=== PATIENT | female | born 1960 | race Caucasian/White ===

== ENCOUNTER 2017-04-06 15:40 | Emergency (ER) | payer BC ==
--- NOTE | 2017-04-06 16:29 | RAD ---
THREE VIEW RIGHT HAND 04/06/17 INDICATION: Posttraumatic pain and swelling of the right hand. FINDINGS: No evidence of fracture or dislocation. Small areas of heterotopic density are present, chronic appe aring. IMPRESSION: No acute fracture of the right hand. POS: [facility]
[2017-04-06 17:18] LABS: #Basophils 0.1 thou/uL (0.0-0.2); #Eosinphils 0.3 thou/uL (0.0-0.7); #Lymphocytes 1.6 thou/uL (1.20-3.40); #Monocytes 0.4 thou/uL (0.11-0.59); #Neutrophils 6.3 thou/uL (1.40-6.50); %Basophils 1.3 % (0.0-1.0); %Eosinophils 3.7 % (0.0-10.0); %Lymphocytes 18.6 % (21.0-51.0); %Monocytes 4.1 % (0.0-10.0); %Neutrophils 72.4 % (42.0-75.0); ALT (SGPT) 20 U/L (8-55); AST (SGOT) 20 U/L (5-34); Albumin 3.6 g/dL (3.5-5.0); Alkaline Phosphatase 49 U/L (40-150); Anion Gap 13 mmol/L (10-20); BUN (Urea Nitrogen) 12 mg/dL (9.8-20.1); Bilirubin, Total 0.4 mg/dL (0.2-1.2); Calc. Creatinine Clearance 0 mL/min (70-130); Calcium 8.5 mg/dL (7.8-10.44); Carbon Dioxide 27 mmol/L (22-29); Chloride 107 mmol/L (98-107); Estimated GFR-MDRD 90; Globulin 2.8 g/dL (2.4-3.5); Glucose 103 mg/dL (70-105); Hemoglobin 13.1 g/dL (12.0-16.0); Mean Corpuscular Hemoglobin 32.1 pg (27.0-31.0); Mean Corpuscular Volume 100.5 fl (81.0-99.0); Platelet Count 240 thou/uL (130-400); Potassium 3.1 mmol/L (3.5-5.1); Protein, Total 6.4 g/dL (6.0-8.3); RBC Distribution Width 12.7 % (11.5-14.5); Red Blood Cell (RBC) Count 4.08 mill/uL (4.20-5.40); Sodium 144 mmol/L (136-145); Uric Acid 9.5 mg/dL (2.6-6.0); White Blood Cell (WBC) Count 8.7 thou/uL (4.8-10.8)
[2017-04-06] MEDS ORDERED: predniSONE 20 MG TAB ONE (17:28)
[2017-04-10 08:18] LABS: Antinuclear AB Negative (Negative)
== END 2017-04-06 17:43 | disposition home or self-care (01) ==
LOC: MADERS 15:40
DX: M10.9 Gout, unspecified (principal); J44.9 Chronic obstructive pulmonary disease, unspecified; F32.9 Major depressive disorder, single episode, unspecified; E03.9 Hypothyroidism, unspecified; E78.5 Hyperlipidemia, unspecified; Z87.891 Personal history of nicotine dependence; Z79.82 Long term (current) use of aspirin; Z79.899 Other long term (current) drug therapy
CPT/HCPCS: 80053; 84550; 85025; 86038; 86140; 86430; J7506

== ENCOUNTER 2017-06-27 12:04 | Emergency (ER) | payer BC ==
[2017-06-27] MEDS ORDERED: predniSONE 20 MG TAB ONE (12:29)
--- NOTE | 2017-06-27 12:44 | RAD ---
TWO VIEWS CHEST: History: Dyspnea. FINDINGS: Mild cardiomegaly is noted. No evidence of effusions, pneumonia, or pneumothorax seen. Comparison is made from previous exam of 10-06-12. IMPRESSION: Mild cardiomegaly. Otherwise unremarkable PA and lateral chest. POS: [facility]
[2017-06-27 13:30] LABS: Bilirubin Negative (Negative); Blood, Urine Moderate (Negative); Clarity Clear (Clear); Glucose, Urine (Dipstick) Negative (Negative); Leukocyte Trace (Negative); Nitrite Negative (Negative); Protein, Urine (Dipstick) Negative (Neg-Trace); Urobilinogen 0.2 mg/dL (0.2-1.0)
[2017-06-27 13:37] LABS: Bacteria/HPF Rare-Few HPF (None Seen); Squamous Epithelial 0-3 HPF (0-3)
== END 2017-06-27 13:50 | disposition home or self-care (01) ==
LOC: MADERS 12:04
DX: J44.1 Chronic obstructive pulmonary disease with (acute) exacerbation (principal); N39.0 Urinary tract infection, site not specified; E03.9 Hypothyroidism, unspecified; E78.5 Hyperlipidemia, unspecified; F32.9 Major depressive disorder, single episode, unspecified; Z87.891 Personal history of nicotine dependence; Z79.82 Long term (current) use of aspirin; Z79.899 Other long term (current) drug therapy
CPT/HCPCS: 71020; 81003; 81015; 87086; 93005; 94640; J7506; J7620

== ENCOUNTER 2017-09-20 16:31 | Emergency (ER) | payer BC ==
[~2017-09-20 16:31] MED LIST: Albuterol Sulfate 2.5 mg/3 ml Neb ONE
[2017-09-20] MEDS ORDERED: Benzonatate 100 MG CAP ONE (17:25)
[2017-09-20] MEDS ORDERED: predniSONE 20 MG TAB ONE (17:25)
[2017-09-20] MEDS ORDERED: Oseltamivir 75 MG CAP ONE (18:40)
[2017-09-20] MEDS ORDERED: Albuterol Sulfate 1.25 MG/3 ML NEB ONE (18:46)
--- NOTE | 2017-09-20 19:09 | RAD ---
CHEST TWO VIEWS: 09/20/17 COMPARISON: 06/27/17 study. HISTORY: Cough and congestion. Heart size is slightly enlarged. The lungs are clear of any infiltrates. There is no interval change since the prior exam. IMPRESSION: No active intrathoracic disease. Stable chest. POS: [facility]
== END 2017-09-20 18:39 | disposition home or self-care (01) ==
LOC: MADERS 16:31
DX: J10.1 Influenza due to other identified influenza virus with other respiratory manifestations (principal); R09.02 Hypoxemia; J44.9 Chronic obstructive pulmonary disease, unspecified; E03.9 Hypothyroidism, unspecified; E78.5 Hyperlipidemia, unspecified; F17.210 Nicotine dependence, cigarettes, uncomplicated; Z79.82 Long term (current) use of aspirin; Z79.899 Other long term (current) drug therapy
CPT/HCPCS: 71020; 94760; J7506; J7611; J7620

== ENCOUNTER 2018-05-22 17:08 | Emergency (ER) | payer BC | END 2018-05-22 17:30 | disposition home or self-care (01) | LOC: MADERS 17:08 | DX: M77.9 Enthesopathy, unspecified (principal); Z79.82 Long term (current) use of aspirin; Z79.899 Other long term (current) drug therapy | CPT/HCPCS: 99282 ==

== ENCOUNTER 2018-11-16 07:07 | Emergency (ER) | payer BC ==
[2018-11-16] MEDS ORDERED: methylPREDNISolone Sod Succ/PF 125 MG/2 ML VIAL ONE (07:41)
[2018-11-16] MEDS ORDERED: Acetaminophen 500 MG TAB ONE (07:41)
[2018-11-16 08:05] LABS: Band 4 % (5-11); Hemoglobin 14.9 g/dL (12.0-16.0); Lymphocytes 8 % (21-51); Mean Corpuscular HGB CONC 31.8 g/dL (32.0-36.0); Mean Corpuscular Hemoglobin 32.1 pg (27.0-31.0); Mean Platelet Volume 9.3 fL (7.4-10.4); Monocytes 6 % (0-10); Neutrophil 82 % (42-75); Platelet Count 183 thou/uL (130-400); Platelet Morphology Comment Appears Adequate; Red Blood Cell (RBC) Count 4.65 mill/uL (4.20-5.40); White Blood Cell (WBC) Count 8.1 thou/uL (4.8-10.8)
[2018-11-16 08:06] LABS: ALT (SGPT) 33 U/L (8-55); AST (SGOT) 41 U/L (5-34); Albumin 4.2 g/dL (3.5-5.0); Alkaline Phosphatase 63 U/L (40-150); Anion Gap 13 mmol/L (10-20); BUN (Urea Nitrogen) 9 mg/dL (9.8-20.1); Bilirubin, Total 0.5 mg/dL (0.2-1.2); Calc. Creatinine Clearance 0 mL/min (70-130); Carbon Dioxide 32 mmol/L (22-29); Chloride 98 mmol/L (98-107); Estimated GFR-MDRD 87; Glucose 104 mg/dL (70-105); Potassium 3.9 mmol/L (3.5-5.1); Protein, Total 7.2 g/dL (6.0-8.3); Sodium 139 mmol/L (136-145)
[2018-11-16] MEDS ORDERED: cefTRIAXone\\ROCEPHIN 2 GM VIAL ONE (08:28)
[2018-11-16] MEDS ORDERED: Azithromycin 500 MG VIAL ONE ×2 (08:29→08:55)
[2018-11-16] MEDS ORDERED: Sodium Chloride 0.9% 200 ML ONE (08:29)
--- NOTE | 2018-11-16 09:28 | RAD ---
CHEST 2 VIEWS: COMPARISON: 09/20/2017. HISTORY: Cough. Dyspnea. FINDINGS: Normal cardiac silhouette. The pulmonary vessels are within normal limits. There are diffuse inters titial opacities throughout the lung parenchyma. There is a more focal opacity in the left mid lung measuring 2.4 cm. Focal infiltrate is suspected. No pneumothorax or osseous abnormalities. IMPRESSION: Mild pulmonary vascular prominence. Focal left mid lung opacity. Correlate for infiltrate. Continu ed surveillance to ensure resolution is recommended. POS: [facility]
== END 2018-11-16 09:07 | disposition short-term general hospital (02) ==
LOC: MADERS 07:07
DX: A41.9 Sepsis, unspecified organism (principal); R65.20 Severe sepsis without septic shock; J96.01 Acute respiratory failure with hypoxia; J18.9 Pneumonia, unspecified organism; J44.1 Chronic obstructive pulmonary disease with (acute) exacerbation; Z79.899 Other long term (current) drug therapy; Z79.82 Long term (current) use of aspirin; Z79.51 Long term (current) use of inhaled steroids
CPT/HCPCS: 36415; 71046; 80053; 83605; 84484; 85025; 85379; 87040; 87804; 93005; 94760; 96365; 96375; J0456; J0696; J2930; J7050; J7620

== ENCOUNTER 2019-03-18 02:57 | Emergency (ER) | payer BC ==
[2019-03-18] MEDS ORDERED: Ketorolac Tromethamine 30 MG/ML VIAL ONE (03:23)
[2019-03-18] MEDS ORDERED: Clindamycin/D5W 900 mg/50 ml Premix Bag ONE (03:36)
[2019-03-18] MEDS ORDERED: Dexamethasone 10 MG/ML VIAL ONE (03:36)
[2019-03-18 03:40] LABS: #Basophils 0.2 thou/uL (0.0-0.2); #Eosinphils 0.3 thou/uL (0.0-0.7); #Monocytes 0.8 thou/uL (0.11-0.59); #Neutrophils 7.5 thou/uL (1.40-6.50); %Basophils 1.5 % (0.0-1.0); %Eosinophils 2.8 % (0.0-10.0); %Lymphocytes 18.7 % (21.0-51.0); %Monocytes 7.2 % (0.0-10.0); %Neutrophils 69.8 % (42.0-75.0); Hemoglobin 13.9 g/dL (12.0-16.0); Mean Corpuscular Hemoglobin 32.7 pg (27.0-31.0); Platelet Count 229 thou/uL (130-400); RBC Distribution Width 12.2 % (11.5-14.5); Red Blood Cell (RBC) Count 4.26 mill/uL (4.20-5.40); White Blood Cell (WBC) Count 10.7 thou/uL (4.8-10.8)
[2019-03-18 03:54] LABS: Anion Gap 15 mmol/L (10-20); BUN (Urea Nitrogen) 13 mg/dL (9.8-20.1); Calc. Creatinine Clearance 0 mL/min (70-130); Calcium 9.2 mg/dL (7.8-10.44); Carbon Dioxide 29 mmol/L (22-29); Chloride 103 mmol/L (98-107); Estimated GFR-MDRD 85; Glucose 96 mg/dL (70-105); Potassium 3.5 mmol/L (3.5-5.1); Sodium 143 mmol/L (136-145)
== END 2019-03-18 05:10 | disposition home or self-care (01) ==
LOC: MADERS 02:57
DX: K04.7 Periapical abscess without sinus (principal); L03.211 Cellulitis of face; K02.9 Dental caries, unspecified; J44.9 Chronic obstructive pulmonary disease, unspecified; F31.9 Bipolar disorder, unspecified; Z87.891 Personal history of nicotine dependence; Z79.899 Other long term (current) drug therapy
CPT/HCPCS: 80048; 85025; 96365; 96375; J1100; J1885; J3490

== ENCOUNTER 2019-07-11 18:08 | Emergency (ER) | payer BC | END 2019-07-11 18:37 | disposition home or self-care (01) | LOC: MADERS 18:08 | DX: M62.838 Other muscle spasm (principal); J44.9 Chronic obstructive pulmonary disease, unspecified; F31.9 Bipolar disorder, unspecified; Z87.891 Personal history of nicotine dependence; Z79.899 Other long term (current) drug therapy; Z79.51 Long term (current) use of inhaled steroids | CPT/HCPCS: 99283 ==

== ENCOUNTER 2022-05-21 01:19 | Emergency (ER) | payer OTHER ==
[2022-05-21 02:45] LABS: #Basophils 0.1 thou/uL (0.0-0.2); #Eosinphils 0.3 thou/uL (0.0-0.7); #Lymphocytes 0.8 thou/uL (1.20-3.40); #Monocytes 0.4 thou/uL (0.11-0.59); #Neutrophils 6.1 thou/uL (1.40-6.50); %Basophils 1.3 % (0.0-1.0); %Eosinophils 3.5 % (0.0-10.0); %Lymphocytes 10.8 % (21.0-51.0); %Monocytes 5.6 % (0.0-10.0); %Neutrophils 78.8 % (42.0-75.0); Hemoglobin 15.1 g/dL (12.0-16.0); Mean Corpuscular HGB CONC 31.2 g/dL (32.0-36.0); Mean Corpuscular Hemoglobin 30.7 pg (27.0-31.0); Mean Corpuscular Volume 98.6 fL (78.0-98.0); Mean Platelet Volume 11.1 fL (7.4-10.4); Platelet Count 210 thou/uL (130-400); RBC Distribution Width 12.7 % (11.5-14.5); Red Blood Cell (RBC) Count 4.92 mill/uL (4.20-5.40); White Blood Cell (WBC) Count 7.7 thou/uL (4.8-10.8)
[2022-05-21 03:05] LABS: ALT (SGPT) 24 U/L (8-55); AST (SGOT) 53 U/L (5-34); Albumin 3.9 g/dL (3.4-4.8); Alkaline Phosphatase 63 U/L (40-110); Anion Gap 19 mmol/L (10-20); BUN (Urea Nitrogen) 10 mg/dL (9.8-20.1); Calc. Creatinine Clearance 0 mL/min (70-130); Calcium 9.7 mg/dL (7.8-10.44); Estimated GFR 85; Globulin 3.8 g/dL (2.4-3.5); Glucose 166 mg/dL (80-115); Magnesium 1.6 mg/dL (1.6-2.6); Protein, Total 7.7 g/dL (5.8-8.1)
[2022-05-21] MEDS ORDERED: Albuterol Sulfate 2.5 mg/3 ml Neb ONE ×2 (03:07→04:04)
[2022-05-21] MEDS ORDERED: Amoxicillin/Potassium Clav 875 MG TAB ONE (03:07)
[2022-05-21] MEDS ORDERED: methylPREDNISolone Sod Succ/PF 125 MG/2 ML VIAL ONE (03:07)
[2022-05-21 03:08] LABS: Carbon Dioxide 46 mmol/L (23-31); Chloride 74 mmol/L (98-107); Potassium 2.8 mmol/L (3.5-5.1); Sodium 136 mmol/L (136-145)
[2022-05-21 03:29] LABS: SARS-CoV-2 NAA Rapid Test Not Detected (NotDetected)
[2022-05-21 03:51] LABS: Base Excess-Venous 15.5 mmol/L (-2.0 to 3.0); Bicarbonate (HCO3v) 46.9 mmol/L (22.0-28.0); CO2 Tension (PvCO2) 82.2 mmHg (42.0-51.0); Calcium, Ionized 1.03 mmol/L (1.15-1.33); Chloride 72 mmol/L (98-107); Hemoglobin - Calc 18.4 g/dL (12.0-16.0); Potassium 2.2 mmol/L (3.5-5.1); Sodium 130 mmol/L (138-145); T. Carbon Dioxide 49.4 mmol/L (22.0-28.0); vO2 Saturation-calc 70.9 % (60.0-85.0)
[2022-05-21] MEDS ORDERED: Magnesium 2 GM/50 ML BAG (IN WATER) ONE (04:04)
[2022-05-21] MEDS ORDERED: Potassium Chloride 20 MEQ TAB ONE (04:04)
[2022-05-21] MEDS ORDERED: Sodium Chloride 0.9% 1,000 ML ONE ×2 (04:04→09:21)
[2022-05-21 08:57] LABS: Anion Gap 18 mmol/L (10-20); BUN (Urea Nitrogen) 10 mg/dL (9.8-20.1); Calc. Creatinine Clearance 0 mL/min (70-130); Calcium 9.1 mg/dL (7.8-10.44); Estimated GFR 87; Glucose 201 mg/dL (80-115); Magnesium 2.5 mg/dL (1.6-2.6)
[2022-05-21 09:00] LABS: Carbon Dioxide 42 mmol/L (23-31)
[2022-05-21 09:01] LABS: Chloride 79 mmol/L (98-107); Potassium 3.3 mmol/L (3.5-5.1); Sodium 136 mmol/L (136-145)
[2022-05-21 09:20] LABS: Bilirubin Negative (Negative); Blood, Urine Trace (Negative); Clarity Clear (Clear); Glucose, Urine (Dipstick) Negative (Negative); Ketone, Urine Negative (Negative); Leukocyte Negative (Negative); Nitrite Negative (Negative); Protein, Urine (Dipstick) Negative (Neg-Trace); Specific Gravity, Urine 1.015 (1.005-1.030); Urobilinogen 0.2 mg/dL (Less than 2); pH, Urine 6.5 (5.0-9.0)
[2022-05-21] MEDS ORDERED: Multivit, Adult Inj 10 ML VIAL ONE (09:21)
[2022-05-21] MEDS ORDERED: Thiamine HCl 200 MG/2 ML VIAL ONE (09:21)
[2022-05-21 09:28] LABS: Bacteria/HPF Rare-Few HPF (None Seen); WBC/HPF 0-3 HPF (0-3)
[2022-05-21 09:53] LABS: Acetaminophen Less than 10.0 mcg/mL (10.0-30.0); Alcohol Less than 10 mg/dL (Less than 10); Salicylate Less than 8.0 mg/dL (15.0-30.0)
== END 2022-05-21 10:43 | disposition short-term general hospital (02) ==
LOC: MADERS 01:19
DX: S09.90XA Unspecified injury of head, initial encounter (principal); J44.1 Chronic obstructive pulmonary disease with (acute) exacerbation; E87.8 Other disorders of electrolyte and fluid balance, not elsewhere classified; E87.6 Hypokalemia; E83.42 Hypomagnesemia; R41.82 Altered mental status, unspecified; R53.1 Weakness; R94.31 Abnormal electrocardiogram [ECG] [EKG]; R29.700 NIHSS score 0; I10 Essential (primary) hypertension; E03.9 Hypothyroidism, unspecified; W06.XXXA Fall from bed, initial encounter; Y92.002 Bathroom of unspecified non-institutional (private) residence as the place of occurrence of the external cause; Z20.822 Contact with and (suspected) exposure to COVID-19; Z87.891 Personal history of nicotine dependence
CPT/HCPCS: 36415; 70450; 71045; 72125; 80053; 80307; 81003; 81015; 82330; 82803; 83735; 84439; 84443; 84484; 85025; 93005; 94760; 96365; 96366; 96367; 96368; 96372; 96375; J2930; J3411; J3475; J3480; J7050; J7611; J7620

== ENCOUNTER 2022-05-25 18:14 | Inpatient (IN) | payer OTHER ==
[2022-05-25] MEDS ORDERED: Albuterol 200 PUFF (6.7GM INHALER) INH PRN (21:44)
[2022-05-26] MEDS: Levothyroxine Sodium 112 MCG TAB PO SCH (05:53)
[2022-05-26] MEDS ORDERED: Mometasone/Formoterol 200/5 60 PUFF INH SCH (07:00)
[2022-05-26 07:21] LABS: #Basophils 0.1 thou/uL (0.0-0.2); #Eosinphils 0.2 thou/uL (0.0-0.7); #Lymphocytes 2.4 thou/uL (1.20-3.40); #Monocytes 0.8 thou/uL (0.11-0.59); #Neutrophils 6.5 thou/uL (1.40-6.50); %Basophils 1.3 % (0.0-1.0); %Eosinophils 1.5 % (0.0-10.0); %Lymphocytes 24.4 % (21.0-51.0); %Monocytes 7.6 % (0.0-10.0); %Neutrophils 65.3 % (42.0-75.0); Hemoglobin 12.3 g/dL (12.0-16.0); MDiff Complete? YES; Macrocytosis SLIGHT = 6-15 cells (100X) (0-5/hpf); Mean Corpuscular HGB CONC 29.2 g/dL (32.0-36.0); Mean Corpuscular Hemoglobin 30.9 pg (27.0-31.0); Mean Corpuscular Volume 105.7 fL (78.0-98.0); Platelet Count 208 thou/uL (130-400); RBC Distribution Width 13.8 % (11.5-14.5); Red Blood Cell (RBC) Count 3.99 mill/uL (4.20-5.40); White Blood Cell (WBC) Count 9.9 thou/uL (4.8-10.8)
[2022-05-26 07:47] LABS: Anion Gap 16 mmol/L (10-20); BUN (Urea Nitrogen) 24 mg/dL (9.8-20.1); Calc. Creatinine Clearance 127 mL/min (70-130); Calcium 9.1 mg/dL (7.8-10.44); Estimated GFR 97; Glucose 84 mg/dL (80-115)
[2022-05-26 07:54] LABS: Chloride 88 mmol/L (98-107); Potassium 3.7 mmol/L (3.5-5.1); Sodium 144 mmol/L (136-145)
[2022-05-26] MEDS: predniSONE 20 MG TAB PO SCH (08:01)
[2022-05-26] MEDS: Escitalopram Oxalate 10 mg Tablet PO SCH (08:01)
[2022-05-26] MEDS: Aspirin Chewable 81 MG TAB PO SCH (08:01)
[2022-05-26] MEDS: Multivit, Therapeutic 1 TAB PO SCH (08:02)
[2022-05-26] MEDS: Hydrochlorothiazide 25 MG TAB PO SCH ×2 (08:02→12:10)
[2022-05-26] MEDS: Divalproex Sodium 250 MG (DR) TAB PO SCH (08:02)
[2022-05-26] MEDS: ALPRAZolam 0.25 MG TAB PO SCH ×2 (08:03→21:12)
[2022-05-26] MEDS: Furosemide 20 MG TAB PO SCH ×2 (08:03→12:10)
[2022-05-26] MEDS: Enoxaparin Sodium 40 MG/0.4 ML SYRINGE SC SCH (08:04)
[2022-05-26] MEDS: Lisinopril 20 MG TAB PO SCH ×2 (08:04→12:10)
[2022-05-26] MEDS: Mometasone/Formoterol 200/5 60 PUFF INH SCH ×2 (08:05→21:01)
[2022-05-26 08:49] LABS: Carbon Dioxide 43 mmol/L (23-31)
[2022-05-26] MEDS: Albuterol Sulfate 2.5 mg/3 ml Neb NEB PRN (20:58)
[2022-05-27] MEDS: Albuterol Sulfate 2.5 mg/3 ml Neb NEB PRN (03:28)
[2022-05-27] MEDS: Levothyroxine Sodium 112 MCG TAB PO SCH (05:54)
[2022-05-27] MEDS: Divalproex Sodium 250 MG (DR) TAB PO SCH (08:23)
[2022-05-27] MEDS: ALPRAZolam 0.25 MG TAB PO SCH ×2 (08:23→20:11)
[2022-05-27] MEDS: Aspirin Chewable 81 MG TAB PO SCH (08:23)
[2022-05-27] MEDS: predniSONE 20 MG TAB PO SCH (08:23)
[2022-05-27] MEDS: Lisinopril 20 MG TAB PO SCH (08:24)
[2022-05-27] MEDS: Multivit, Therapeutic 1 TAB PO SCH (08:24)
[2022-05-27] MEDS: Hydrochlorothiazide 25 MG TAB PO SCH (08:24)
[2022-05-27] MEDS: Escitalopram Oxalate 10 mg Tablet PO SCH (08:25)
[2022-05-27] MEDS: Enoxaparin Sodium 40 MG/0.4 ML SYRINGE SC SCH (08:25)
[2022-05-27] MEDS: Mometasone/Formoterol 200/5 60 PUFF INH SCH ×2 (08:25→20:11)
[2022-05-27] MEDS: Furosemide 20 MG TAB PO SCH (08:25)
[2022-05-28] MEDS: Levothyroxine Sodium 112 MCG TAB PO SCH (05:27)
[2022-05-28] MEDS: predniSONE 20 MG TAB PO SCH (08:27)
[2022-05-28] MEDS: Multivit, Therapeutic 1 TAB PO SCH (08:28)
[2022-05-28] MEDS: ALPRAZolam 0.25 MG TAB PO SCH ×2 (08:28→20:07)
[2022-05-28] MEDS: Lisinopril 20 MG TAB PO SCH (08:28)
[2022-05-28] MEDS: Hydrochlorothiazide 25 MG TAB PO SCH (08:28)
[2022-05-28] MEDS: Furosemide 20 MG TAB PO SCH (08:28)
[2022-05-28] MEDS: Escitalopram Oxalate 10 mg Tablet PO SCH (08:29)
[2022-05-28] MEDS: Enoxaparin Sodium 40 MG/0.4 ML SYRINGE SC SCH (08:29)
[2022-05-28] MEDS: Divalproex Sodium 250 MG (DR) TAB PO SCH (08:29)
[2022-05-28] MEDS: Aspirin Chewable 81 MG TAB PO SCH (08:29)
[2022-05-28] MEDS: Mometasone/Formoterol 200/5 60 PUFF INH SCH ×2 (08:30→20:04)
[2022-05-28] MEDS: Albuterol Sulfate 2.5 mg/3 ml Neb NEB PRN ×2 (08:39→22:28)
[2022-05-29] MEDS: Levothyroxine Sodium 112 MCG TAB PO SCH (06:11)
[2022-05-29] MEDS: Hydrochlorothiazide 25 MG TAB PO SCH (07:59)
[2022-05-29] MEDS: Furosemide 20 MG TAB PO SCH (07:59)
[2022-05-29] MEDS: Multivit, Therapeutic 1 TAB PO SCH (07:59)
[2022-05-29] MEDS: Aspirin Chewable 81 MG TAB PO SCH (07:59)
[2022-05-29] MEDS: predniSONE 20 MG TAB PO SCH (07:59)
[2022-05-29] MEDS: Lisinopril 20 MG TAB PO SCH (07:59)
[2022-05-29] MEDS: ALPRAZolam 0.25 MG TAB PO SCH ×2 (08:00→20:29)
[2022-05-29] MEDS: Escitalopram Oxalate 10 mg Tablet PO SCH (08:00)
[2022-05-29] MEDS: Divalproex Sodium 250 MG (DR) TAB PO SCH (08:00)
[2022-05-29] MEDS: Mometasone/Formoterol 200/5 60 PUFF INH SCH (08:01)
[2022-05-29] MEDS: Enoxaparin Sodium 40 MG/0.4 ML SYRINGE SC SCH (08:01)
[2022-05-30 05:45] LABS: Anion Gap 18 mmol/L (10-20); BUN (Urea Nitrogen) 15 mg/dL (9.8-20.1); Calc. Creatinine Clearance 131 mL/min (70-130); Calcium 9.1 mg/dL (7.8-10.44); Estimated GFR 98; Glucose 165 mg/dL (80-115)
[2022-05-30] MEDS: Levothyroxine Sodium 112 MCG TAB PO SCH (05:47)
[2022-05-30 05:50] LABS: Carbon Dioxide 45 mmol/L (23-31); Chloride 85 mmol/L (98-107); Potassium 3.3 mmol/L (3.5-5.1); Sodium 145 mmol/L (136-145)
[2022-05-30] MEDS: Thiamine 100 MG TAB PO SCH (08:06)
[2022-05-30] MEDS: predniSONE 20 MG TAB PO SCH (08:06)
[2022-05-30] MEDS: Furosemide 20 MG TAB PO SCH (08:06)
[2022-05-30] MEDS: Lisinopril 20 MG TAB PO SCH (08:06)
[2022-05-30] MEDS: Aspirin Chewable 81 MG TAB PO SCH (08:06)
[2022-05-30] MEDS: Hydrochlorothiazide 25 MG TAB PO SCH (08:06)
[2022-05-30] MEDS: Escitalopram Oxalate 10 mg Tablet PO SCH (08:06)
[2022-05-30] MEDS: Multivit, Therapeutic 1 TAB PO SCH (08:07)
[2022-05-30] MEDS: ALPRAZolam 0.25 MG TAB PO SCH (08:07)
[2022-05-30] MEDS: Divalproex Sodium 250 MG (DR) TAB PO SCH (08:07)
[2022-05-30] MEDS: Folic Acid 1 MG TAB PO SCH (08:07)
[2022-05-30] MEDS: Enoxaparin Sodium 40 MG/0.4 ML SYRINGE SC SCH (08:07)
[2022-05-30] MEDS: ALPRAZolam 0.5 MG TAB PO SCH (21:20)
[2022-05-31] MEDS: Levothyroxine Sodium 112 MCG TAB PO SCH (06:00)
[2022-05-31] MEDS: Albuterol Sulfate 2.5 mg/3 ml Neb NEB PRN ×2 (08:00→15:46)
[2022-05-31] MEDS: Enoxaparin Sodium 40 MG/0.4 ML SYRINGE SC SCH (08:20)
[2022-05-31] MEDS: Hydrochlorothiazide 25 MG TAB PO SCH (08:21)
[2022-05-31] MEDS: Lisinopril 20 MG TAB PO SCH (08:21)
[2022-05-31] MEDS: Aspirin Chewable 81 MG TAB PO SCH (08:21)
[2022-05-31] MEDS: ALPRAZolam 0.5 MG TAB PO SCH ×2 (08:21→20:15)
[2022-05-31] MEDS: Folic Acid 1 MG TAB PO SCH (08:21)
[2022-05-31] MEDS: Multivit, Therapeutic 1 TAB PO SCH (08:21)
[2022-05-31] MEDS: Escitalopram Oxalate 10 mg Tablet PO SCH (08:21)
[2022-05-31] MEDS: Divalproex Sodium 250 MG (DR) TAB PO SCH (08:21)
[2022-05-31] MEDS: predniSONE 20 MG TAB PO SCH (08:21)
[2022-05-31] MEDS: Thiamine 100 MG TAB PO SCH (08:21)
[2022-05-31] MEDS: Furosemide 20 MG TAB PO SCH (08:21)
[2022-06-01] MEDS: Levothyroxine Sodium 112 MCG TAB PO SCH (05:36)
[2022-06-01] MEDS: ALPRAZolam 0.5 MG TAB PO SCH ×2 (08:33→20:11)
[2022-06-01] MEDS: Hydrochlorothiazide 25 MG TAB PO SCH (08:34)
[2022-06-01] MEDS: Multivit, Therapeutic 1 TAB PO SCH (08:34)
[2022-06-01] MEDS: Furosemide 20 MG TAB PO SCH (08:34)
[2022-06-01] MEDS: Escitalopram Oxalate 10 mg Tablet PO SCH (08:34)
[2022-06-01] MEDS: Folic Acid 1 MG TAB PO SCH (08:34)
[2022-06-01] MEDS: predniSONE 20 MG TAB PO SCH (08:34)
[2022-06-01] MEDS: Lisinopril 20 MG TAB PO SCH (08:34)
[2022-06-01] MEDS: Divalproex Sodium 250 MG (DR) TAB PO SCH (08:34)
[2022-06-01] MEDS: Thiamine 100 MG TAB PO SCH (08:34)
[2022-06-01] MEDS: Aspirin Chewable 81 MG TAB PO SCH (08:34)
[2022-06-01] MEDS: Enoxaparin Sodium 40 MG/0.4 ML SYRINGE SC SCH (08:38)
[2022-06-02] MEDS: Levothyroxine Sodium 112 MCG TAB PO SCH (06:20)
[2022-06-02] MEDS: Thiamine 100 MG TAB PO SCH (07:59)
[2022-06-02] MEDS: Aspirin Chewable 81 MG TAB PO SCH (07:59)
[2022-06-02] MEDS: Furosemide 20 MG TAB PO SCH (07:59)
[2022-06-02] MEDS: Divalproex Sodium 250 MG (DR) TAB PO SCH (07:59)
[2022-06-02] MEDS: predniSONE 20 MG TAB PO SCH (07:59)
[2022-06-02] MEDS: ALPRAZolam 0.5 MG TAB PO SCH ×2 (07:59→21:02)
[2022-06-02] MEDS: Multivit, Therapeutic 1 TAB PO SCH (07:59)
[2022-06-02] MEDS: Hydrochlorothiazide 25 MG TAB PO SCH (08:00)
[2022-06-02] MEDS: Escitalopram Oxalate 10 mg Tablet PO SCH (08:00)
[2022-06-02] MEDS: Lisinopril 20 MG TAB PO SCH (08:00)
[2022-06-02] MEDS: Enoxaparin Sodium 40 MG/0.4 ML SYRINGE SC SCH (08:00)
[2022-06-02] MEDS: Folic Acid 1 MG TAB PO SCH (08:03)
[2022-06-03 05:32] LABS: Hemoglobin 12.8 g/dL (12.0-16.0); Platelet Count 220 thou/uL (130-400)
[2022-06-03] MEDS: Levothyroxine Sodium 112 MCG TAB PO SCH (05:46)
[2022-06-03] MEDS: ALPRAZolam 0.5 MG TAB PO SCH ×2 (08:17→20:35)
[2022-06-03] MEDS: Hydrochlorothiazide 25 MG TAB PO SCH (08:17)
[2022-06-03] MEDS: predniSONE 10 MG TAB PO SCH (08:18)
[2022-06-03] MEDS: Divalproex Sodium 250 MG (DR) TAB PO SCH (08:18)
[2022-06-03] MEDS: Escitalopram Oxalate 10 mg Tablet PO SCH (08:18)
[2022-06-03] MEDS: Furosemide 20 MG TAB PO SCH (08:18)
[2022-06-03] MEDS: Lisinopril 20 MG TAB PO SCH (08:18)
[2022-06-03] MEDS: Aspirin Chewable 81 MG TAB PO SCH (08:19)
[2022-06-03] MEDS: Multivit, Therapeutic 1 TAB PO SCH (08:19)
[2022-06-03] MEDS: Folic Acid 1 MG TAB PO SCH (08:19)
[2022-06-03] MEDS: Enoxaparin Sodium 40 MG/0.4 ML SYRINGE SC SCH (08:19)
[2022-06-03] MEDS: Thiamine 100 MG TAB PO SCH (08:19)
[2022-06-04] MEDS: Levothyroxine Sodium 112 MCG TAB PO SCH (05:40)
[2022-06-04] MEDS: Escitalopram Oxalate 10 mg Tablet PO SCH (08:28)
[2022-06-04] MEDS: Divalproex Sodium 250 MG (DR) TAB PO SCH (08:28)
[2022-06-04] MEDS: Hydrochlorothiazide 25 MG TAB PO SCH (08:29)
[2022-06-04] MEDS: Folic Acid 1 MG TAB PO SCH (08:29)
[2022-06-04] MEDS: Lisinopril 20 MG TAB PO SCH (08:29)
[2022-06-04] MEDS: ALPRAZolam 0.5 MG TAB PO SCH ×2 (08:29→20:26)
[2022-06-04] MEDS: Furosemide 20 MG TAB PO SCH (08:29)
[2022-06-04] MEDS: Aspirin Chewable 81 MG TAB PO SCH (08:29)
[2022-06-04] MEDS: Thiamine 100 MG TAB PO SCH (08:29)
[2022-06-04] MEDS: Multivit, Therapeutic 1 TAB PO SCH (08:29)
[2022-06-04] MEDS: predniSONE 10 MG TAB PO SCH (08:30)
[2022-06-04] MEDS: Enoxaparin Sodium 40 MG/0.4 ML SYRINGE SC SCH (08:31)
[2022-06-04] MEDS ORDERED: Ibuprofen 800 MG TAB PO PRN (19:52)
[2022-06-04] MEDS: Ibuprofen 800 MG TAB PO PRN (20:25)
[2022-06-05] MEDS: Levothyroxine Sodium 112 MCG TAB PO SCH (05:21)
[2022-06-05] MEDS: Ibuprofen 800 MG TAB PO PRN ×2 (06:27→17:53)
[2022-06-05] MEDS: Thiamine 100 MG TAB PO SCH (08:31)
[2022-06-05] MEDS: Aspirin Chewable 81 MG TAB PO SCH (08:31)
[2022-06-05] MEDS: predniSONE 5 MG TAB PO SCH (08:31)
[2022-06-05] MEDS: Furosemide 20 MG TAB PO SCH (08:32)
[2022-06-05] MEDS: Multivit, Therapeutic 1 TAB PO SCH (08:32)
[2022-06-05] MEDS: Folic Acid 1 MG TAB PO SCH (08:32)
[2022-06-05] MEDS: Divalproex Sodium 250 MG (DR) TAB PO SCH (08:32)
[2022-06-05] MEDS: Enoxaparin Sodium 40 MG/0.4 ML SYRINGE SC SCH (08:32)
[2022-06-05] MEDS: Escitalopram Oxalate 10 mg Tablet PO SCH (08:32)
[2022-06-05] MEDS: Hydrochlorothiazide 25 MG TAB PO SCH (08:32)
[2022-06-05] MEDS: Lisinopril 20 MG TAB PO SCH (08:33)
[2022-06-05] MEDS: ALPRAZolam 0.5 MG TAB PO SCH ×2 (08:36→20:33)
[2022-06-05 10:57] VITALS: BMI 37.3
[2022-06-05] MEDS: Primidone 50 MG TAB PO SCH (20:33)
[2022-06-06] MEDS: Levothyroxine Sodium 112 MCG TAB PO SCH (05:13)
[2022-06-06] MEDS: ALPRAZolam 0.5 MG TAB PO SCH ×2 (08:43→20:16)
[2022-06-06] MEDS: Thiamine 100 MG TAB PO SCH (08:43)
[2022-06-06] MEDS: Divalproex Sodium 250 MG (DR) TAB PO SCH (08:43)
[2022-06-06] MEDS: Multivit, Therapeutic 1 TAB PO SCH (08:44)
[2022-06-06] MEDS: Lisinopril 20 MG TAB PO SCH (08:44)
[2022-06-06] MEDS: Aspirin Chewable 81 MG TAB PO SCH (08:44)
[2022-06-06] MEDS: Hydrochlorothiazide 25 MG TAB PO SCH (08:44)
[2022-06-06] MEDS: Folic Acid 1 MG TAB PO SCH (08:44)
[2022-06-06] MEDS: Enoxaparin Sodium 40 MG/0.4 ML SYRINGE SC SCH (08:44)
[2022-06-06] MEDS: Furosemide 20 MG TAB PO SCH (08:44)
[2022-06-06] MEDS: predniSONE 5 MG TAB PO SCH (08:44)
[2022-06-06] MEDS: Escitalopram Oxalate 10 mg Tablet PO SCH (08:44)
[2022-06-06 13:44] LABS: #Basophils 0.1 thou/uL (0.0-0.2); #Eosinphils 0.3 thou/uL (0.0-0.7); #Lymphocytes 1.2 thou/uL (1.20-3.40); #Monocytes 0.6 thou/uL (0.11-0.59); #Neutrophils 9.2 thou/uL (1.40-6.50); %Basophils 1.3 % (0.0-1.0); %Eosinophils 2.9 % (0.0-10.0); %Lymphocytes 10.8 % (21.0-51.0); %Monocytes 5.4 % (0.0-10.0); %Neutrophils 79.6 % (42.0-75.0); Hemoglobin 11.6 g/dL (12.0-16.0); Mean Corpuscular Volume 103.2 fL (78.0-98.0); Mean Platelet Volume 11.5 fL (7.4-10.4); Platelet Count 190 thou/uL (130-400); RBC Distribution Width 13.5 % (11.5-14.5); Red Blood Cell (RBC) Count 3.76 mill/uL (4.20-5.40); White Blood Cell (WBC) Count 11.6 thou/uL (4.8-10.8)
[2022-06-06 13:56] LABS: Anion Gap 17 mmol/L (10-20); BUN (Urea Nitrogen) 13 mg/dL (9.8-20.1); Calc. Creatinine Clearance 138 mL/min (70-130); Calcium 9.5 mg/dL (7.8-10.44); Estimated GFR 99; Glucose 214 mg/dL (80-115)
[2022-06-06 14:04] LABS: Chloride 84 mmol/L (98-107); Potassium 3.1 mmol/L (3.5-5.1); Sodium 142 mmol/L (136-145)
[2022-06-06 14:14] LABS: Carbon Dioxide 43 mmol/L (23-31)
[2022-06-06] MEDS ORDERED: Potassium Chloride 20 MEQ TAB PO SCH (16:45)
[2022-06-06] MEDS: Primidone 50 MG TAB PO SCH (20:16)
[2022-06-06 20:51] LABS: Amphetamine Not Detected (NotDetected); Barbiturates Screen Not Detected (NotDetected); Benzodiazepine Screen Detected (NotDetected); Cocaine Metabolite Screen Not Detected (NotDetected); Methadone Not Detected (NotDetected); Methamphetamine Not Detected (NotDetected); Opiate Screen Not Detected (NotDetected); Oxycodone Screen Not Detected (NotDetected); Phencyclidine (PCP) Not Detected (NotDetected); THC/Cannabinoid Screen Not Detected (NotDetected); Tricyclic Screen Not Detected (NotDetected)
[2022-06-06 20:52] LABS: Medtox Control Line Valid? VALID (VALID)
[2022-06-07] MEDS: Levothyroxine Sodium 112 MCG TAB PO SCH (05:56)
[2022-06-07] MEDS: predniSONE 5 MG TAB PO SCH (07:48)
[2022-06-07] MEDS: ALPRAZolam 0.5 MG TAB PO SCH ×2 (08:02→20:34)
[2022-06-07] MEDS: Aspirin Chewable 81 MG TAB PO SCH (08:02)
[2022-06-07] MEDS: Multivit, Therapeutic 1 TAB PO SCH (08:03)
[2022-06-07] MEDS: Thiamine 100 MG TAB PO SCH (08:03)
[2022-06-07] MEDS: Divalproex Sodium 250 MG (DR) TAB PO SCH (08:03)
[2022-06-07] MEDS: Folic Acid 1 MG TAB PO SCH (08:03)
[2022-06-07] MEDS: Escitalopram Oxalate 10 mg Tablet PO SCH (08:03)
[2022-06-07] MEDS: Hydrochlorothiazide 25 MG TAB PO SCH (09:16)
[2022-06-07] MEDS: Lisinopril 20 MG TAB PO SCH (09:17)
[2022-06-07] MEDS: Furosemide 20 MG TAB PO SCH (09:17)
[2022-06-08] MEDS: Levothyroxine Sodium 112 MCG TAB PO SCH (05:32)
[2022-06-08] MEDS: Multivit, Therapeutic 1 TAB PO SCH (08:03)
[2022-06-08] MEDS: ALPRAZolam 0.5 MG TAB PO SCH ×2 (08:03→20:44)
[2022-06-08] MEDS: Thiamine 100 MG TAB PO SCH (08:03)
[2022-06-08] MEDS: Aspirin Chewable 81 MG TAB PO SCH (08:03)
[2022-06-08] MEDS: Folic Acid 1 MG TAB PO SCH (08:03)
[2022-06-08] MEDS: Divalproex Sodium 250 MG (DR) TAB PO SCH (08:03)
[2022-06-08] MEDS: Escitalopram Oxalate 10 mg Tablet PO SCH (08:03)
[2022-06-08] MEDS ORDERED: Lisinopril 5 MG TAB PO SCH ×2 (09:00)
[2022-06-08] MEDS: Ipratropium Bromide 2.5 ml Neb NEB SCH (18:14)
[2022-06-08] MEDS ORDERED: Ipratropium Bromide 2.5 ml Neb NEB SCH (19:00)
[2022-06-08] MEDS: Mometasone/Formoterol 200/5 60 PUFF INH SCH (20:46)
[2022-06-08] MEDS: Ibuprofen 800 MG TAB PO PRN (20:58)
[2022-06-09] MEDS: Ipratropium Bromide 2.5 ml Neb NEB SCH ×5 (00:35→23:59)
[2022-06-09 05:29] LABS: #Basophils 0.1 thou/uL (0.0-0.2); #Eosinphils 0.4 thou/uL (0.0-0.7); #Lymphocytes 1.4 thou/uL (1.20-3.40); #Monocytes 0.5 thou/uL (0.11-0.59); #Neutrophils 4.8 thou/uL (1.40-6.50); %Basophils 1.8 % (0.0-1.0); %Eosinophils 5.3 % (0.0-10.0); %Lymphocytes 18.9 % (21.0-51.0); %Monocytes 6.5 % (0.0-10.0); %Neutrophils 67.5 % (42.0-75.0); Hemoglobin 11.4 g/dL (12.0-16.0); Mean Corpuscular HGB CONC 29.4 g/dL (32.0-36.0); Mean Corpuscular Hemoglobin 30.6 pg (27.0-31.0); Mean Platelet Volume 10.4 fL (7.4-10.4); Platelet Count 185 thou/uL (130-400); RBC Distribution Width 13.2 % (11.5-14.5); Red Blood Cell (RBC) Count 3.72 mill/uL (4.20-5.40); White Blood Cell (WBC) Count 7.2 thou/uL (4.8-10.8)
[2022-06-09] MEDS: Levothyroxine Sodium 112 MCG TAB PO SCH (05:31)
[2022-06-09 05:45] LABS: Anion Gap 14 mmol/L (10-20); BUN (Urea Nitrogen) 12 mg/dL (9.8-20.1); Calc. Creatinine Clearance 149 mL/min (70-130); Calcium 9.5 mg/dL (7.8-10.44); Estimated GFR 100; Glucose 147 mg/dL (80-115)
[2022-06-09 05:52] LABS: Chloride 87 mmol/L (98-107); Potassium 3.4 mmol/L (3.5-5.1); Sodium 144 mmol/L (136-145)
[2022-06-09 05:58] LABS: Carbon Dioxide 46 mmol/L (23-31)
[2022-06-09] MEDS: Aspirin Chewable 81 MG TAB PO SCH (08:10)
[2022-06-09] MEDS: ALPRAZolam 0.5 MG TAB PO SCH ×2 (08:10→21:03)
[2022-06-09] MEDS: Folic Acid 1 MG TAB PO SCH (08:10)
[2022-06-09] MEDS: Multivit, Therapeutic 1 TAB PO SCH (08:10)
[2022-06-09] MEDS: Escitalopram Oxalate 10 mg Tablet PO SCH (08:10)
[2022-06-09] MEDS: Thiamine 100 MG TAB PO SCH (08:11)
[2022-06-09] MEDS: Divalproex Sodium 250 MG (DR) TAB PO SCH ×2 (08:11→21:04)
[2022-06-09] MEDS: Mometasone/Formoterol 200/5 60 PUFF INH SCH ×2 (08:11→21:05)
[2022-06-09] MEDS ORDERED: Divalproex Sodium 250 MG (DR) TAB PO SCH (10:30)
[2022-06-10] MEDS: Ipratropium Bromide 2.5 ml Neb NEB SCH ×3 (06:09→17:01)
[2022-06-10] MEDS: Levothyroxine Sodium 112 MCG TAB PO SCH (06:09)
[2022-06-10] MEDS: Aspirin Chewable 81 MG TAB PO SCH (09:05)
[2022-06-10] MEDS: ALPRAZolam 0.5 MG TAB PO SCH ×2 (09:05→21:17)
[2022-06-10] MEDS: Folic Acid 1 MG TAB PO SCH (09:06)
[2022-06-10] MEDS: Escitalopram Oxalate 10 mg Tablet PO SCH (09:06)
[2022-06-10] MEDS: Multivit, Therapeutic 1 TAB PO SCH (09:06)
[2022-06-10] MEDS: Thiamine 100 MG TAB PO SCH (09:06)
[2022-06-10] MEDS: Divalproex Sodium 250 MG (DR) TAB PO SCH ×2 (09:10→21:18)
[2022-06-10] MEDS: Mometasone/Formoterol 200/5 60 PUFF INH SCH ×2 (09:14→21:21)
[2022-06-10] MEDS: Albuterol Sulfate 2.5 mg/3 ml Neb NEB PRN (21:18)
[2022-06-11] MEDS: Ipratropium Bromide 2.5 ml Neb NEB SCH ×4 (00:06→17:12)
[2022-06-11] MEDS: Levothyroxine Sodium 112 MCG TAB PO SCH (05:50)
[2022-06-11] MEDS: ALPRAZolam 0.5 MG TAB PO SCH ×2 (08:47→20:43)
[2022-06-11] MEDS: Aspirin Chewable 81 MG TAB PO SCH (08:47)
[2022-06-11] MEDS: Multivit, Therapeutic 1 TAB PO SCH (08:48)
[2022-06-11] MEDS: Mometasone/Formoterol 200/5 60 PUFF INH SCH ×2 (08:48→20:44)
[2022-06-11] MEDS: Escitalopram Oxalate 10 mg Tablet PO SCH (08:48)
[2022-06-11] MEDS: Thiamine 100 MG TAB PO SCH (08:48)
[2022-06-11] MEDS: Divalproex Sodium 250 MG (DR) TAB PO SCH ×2 (08:48→20:44)
[2022-06-11] MEDS: Folic Acid 1 MG TAB PO SCH (08:48)
[2022-06-12] MEDS: Ipratropium Bromide 2.5 ml Neb NEB SCH ×4 (00:50→17:53)
[2022-06-12] MEDS: Levothyroxine Sodium 112 MCG TAB PO SCH (05:41)
[2022-06-12] MEDS: Escitalopram Oxalate 10 mg Tablet PO SCH (07:50)
[2022-06-12] MEDS: Mometasone/Formoterol 200/5 60 PUFF INH SCH ×2 (07:50→20:28)
[2022-06-12] MEDS: Divalproex Sodium 250 MG (DR) TAB PO SCH ×2 (07:50→20:28)
[2022-06-12] MEDS: Aspirin Chewable 81 MG TAB PO SCH (07:50)
[2022-06-12] MEDS: Folic Acid 1 MG TAB PO SCH (07:51)
[2022-06-12] MEDS: Multivit, Therapeutic 1 TAB PO SCH (07:51)
[2022-06-12] MEDS: Thiamine 100 MG TAB PO SCH (07:51)
[2022-06-12] MEDS: ALPRAZolam 0.5 MG TAB PO SCH ×2 (07:53→20:28)
[2022-06-13] MEDS: Ipratropium Bromide 2.5 ml Neb NEB SCH ×4 (00:35→18:12)
[2022-06-13] MEDS: Ibuprofen 800 MG TAB PO PRN (03:22)
[2022-06-13] MEDS: Levothyroxine Sodium 112 MCG TAB PO SCH (05:39)
[2022-06-13] MEDS: Multivit, Therapeutic 1 TAB PO SCH (07:52)
[2022-06-13] MEDS: Thiamine 100 MG TAB PO SCH (07:52)
[2022-06-13] MEDS: Divalproex Sodium 250 MG (DR) TAB PO SCH ×2 (07:52→21:21)
[2022-06-13] MEDS: Aspirin Chewable 81 MG TAB PO SCH (07:52)
[2022-06-13] MEDS: Mometasone/Formoterol 200/5 60 PUFF INH SCH ×2 (07:52→21:22)
[2022-06-13] MEDS: Folic Acid 1 MG TAB PO SCH (07:53)
[2022-06-13] MEDS: Escitalopram Oxalate 10 mg Tablet PO SCH (07:53)
[2022-06-13] MEDS: ALPRAZolam 0.5 MG TAB PO SCH ×2 (07:53→21:21)
[2022-06-14] MEDS: Ipratropium Bromide 2.5 ml Neb NEB SCH ×4 (01:16→17:22)
[2022-06-14] MEDS: Levothyroxine Sodium 112 MCG TAB PO SCH (05:37)
[2022-06-14] MEDS: Aspirin Chewable 81 MG TAB PO SCH (08:02)
[2022-06-14] MEDS: Folic Acid 1 MG TAB PO SCH (08:02)
[2022-06-14] MEDS: Divalproex Sodium 250 MG (DR) TAB PO SCH ×2 (08:02→21:55)
[2022-06-14] MEDS: Escitalopram Oxalate 10 mg Tablet PO SCH (08:02)
[2022-06-14] MEDS: Multivit, Therapeutic 1 TAB PO SCH (08:02)
[2022-06-14] MEDS: Mometasone/Formoterol 200/5 60 PUFF INH SCH ×2 (08:02→21:58)
[2022-06-14] MEDS: Thiamine 100 MG TAB PO SCH (08:02)
[2022-06-14] MEDS: ALPRAZolam 0.5 MG TAB PO SCH (08:02)
[2022-06-14] MEDS: ALPRAZolam 0.25 MG TAB PO SCH (21:55)
[2022-06-15] MEDS: Ipratropium Bromide 2.5 ml Neb NEB SCH ×5 (00:42→23:23)
[2022-06-15] MEDS: Levothyroxine Sodium 112 MCG TAB PO SCH (06:05)
[2022-06-15] MEDS: ALPRAZolam 0.25 MG TAB PO SCH ×2 (07:55→20:18)
[2022-06-15] MEDS: Aspirin Chewable 81 MG TAB PO SCH (07:55)
[2022-06-15] MEDS: Multivit, Therapeutic 1 TAB PO SCH (07:55)
[2022-06-15] MEDS: Thiamine 100 MG TAB PO SCH (07:56)
[2022-06-15] MEDS: Divalproex Sodium 250 MG (DR) TAB PO SCH ×2 (07:56→20:17)
[2022-06-15] MEDS: Escitalopram Oxalate 10 mg Tablet PO SCH (07:56)
[2022-06-15] MEDS: Folic Acid 1 MG TAB PO SCH (07:56)
[2022-06-15] MEDS: Mometasone/Formoterol 200/5 60 PUFF INH SCH ×2 (07:56→20:19)
[2022-06-16] MEDS: Ipratropium Bromide 2.5 ml Neb NEB SCH ×3 (05:25→17:58)
[2022-06-16] MEDS: Levothyroxine Sodium 112 MCG TAB PO SCH (05:27)
[2022-06-16] MEDS: Aspirin Chewable 81 MG TAB PO SCH (08:12)
[2022-06-16] MEDS: Multivit, Therapeutic 1 TAB PO SCH (08:12)
[2022-06-16] MEDS: Thiamine 100 MG TAB PO SCH (08:12)
[2022-06-16] MEDS: Escitalopram Oxalate 10 mg Tablet PO SCH (08:12)
[2022-06-16] MEDS: ALPRAZolam 0.25 MG TAB PO SCH ×2 (08:12→20:55)
[2022-06-16] MEDS: Divalproex Sodium 250 MG (DR) TAB PO SCH ×2 (08:12→20:55)
[2022-06-16] MEDS: Mometasone/Formoterol 200/5 60 PUFF INH SCH ×3 (08:12→20:55)
[2022-06-16] MEDS: Folic Acid 1 MG TAB PO SCH (08:12)
[2022-06-16] MEDS: Nystatin Cream 15 GM TUBE TOP SCH (20:54)
[2022-06-16] MEDS: Albuterol Sulfate 2.5 mg/3 ml Neb NEB PRN (21:00)
[2022-06-17] MEDS: Ipratropium Bromide 2.5 ml Neb NEB SCH ×5 (01:03→23:08)
[2022-06-17] MEDS: Levothyroxine Sodium 112 MCG TAB PO SCH ×2 (05:28→08:20)
[2022-06-17] MEDS: Divalproex Sodium 250 MG (DR) TAB PO SCH ×2 (08:19→20:33)
[2022-06-17] MEDS: Escitalopram Oxalate 10 mg Tablet PO SCH (08:19)
[2022-06-17] MEDS: Thiamine 100 MG TAB PO SCH (08:19)
[2022-06-17] MEDS: Aspirin Chewable 81 MG TAB PO SCH (08:19)
[2022-06-17] MEDS: Folic Acid 1 MG TAB PO SCH (08:20)
[2022-06-17] MEDS: ALPRAZolam 0.25 MG TAB PO SCH ×2 (08:20→20:33)
[2022-06-17] MEDS: Mometasone/Formoterol 200/5 60 PUFF INH SCH ×2 (08:20→20:49)
[2022-06-17] MEDS: Multivit, Therapeutic 1 TAB PO SCH (08:20)
[2022-06-17] MEDS: Nystatin Cream 15 GM TUBE TOP SCH ×2 (08:24→20:35)
[2022-06-18] MEDS: Ipratropium Bromide 2.5 ml Neb NEB SCH ×4 (06:06→23:11)
[2022-06-18] MEDS: Levothyroxine Sodium 112 MCG TAB PO SCH (06:06)
[2022-06-18] MEDS: ALPRAZolam 0.25 MG TAB PO SCH ×2 (08:18→20:30)
[2022-06-18] MEDS: Multivit, Therapeutic 1 TAB PO SCH (08:21)
[2022-06-18] MEDS: Thiamine 100 MG TAB PO SCH (08:21)
[2022-06-18] MEDS: Aspirin Chewable 81 MG TAB PO SCH (08:21)
[2022-06-18] MEDS: Mometasone/Formoterol 200/5 60 PUFF INH SCH ×2 (08:21→20:33)
[2022-06-18] MEDS: Divalproex Sodium 250 MG (DR) TAB PO SCH ×2 (08:21→20:30)
[2022-06-18] MEDS: Escitalopram Oxalate 10 mg Tablet PO SCH (08:21)
[2022-06-18] MEDS: Folic Acid 1 MG TAB PO SCH (08:21)
[2022-06-18] MEDS: Nystatin Cream 15 GM TUBE TOP SCH ×2 (08:22→20:32)
[2022-06-19] MEDS: Levothyroxine Sodium 112 MCG TAB PO SCH (05:52)
[2022-06-19] MEDS: Ipratropium Bromide 2.5 ml Neb NEB SCH ×3 (05:52→18:04)
[2022-06-19] MEDS: Mometasone/Formoterol 200/5 60 PUFF INH SCH ×2 (08:23→20:58)
[2022-06-19] MEDS: Escitalopram Oxalate 10 mg Tablet PO SCH (08:23)
[2022-06-19] MEDS: ALPRAZolam 0.25 MG TAB PO SCH ×2 (08:23→20:56)
[2022-06-19] MEDS: Thiamine 100 MG TAB PO SCH (08:23)
[2022-06-19] MEDS: Folic Acid 1 MG TAB PO SCH (08:23)
[2022-06-19] MEDS: Multivit, Therapeutic 1 TAB PO SCH (08:23)
[2022-06-19] MEDS: Aspirin Chewable 81 MG TAB PO SCH (08:23)
[2022-06-19] MEDS: Divalproex Sodium 250 MG (DR) TAB PO SCH ×2 (08:23→20:57)
[2022-06-19] MEDS: Nystatin Cream 15 GM TUBE TOP SCH ×2 (08:24→21:25)
[2022-06-20] MEDS: Ipratropium Bromide 2.5 ml Neb NEB SCH ×5 (01:00→23:38)
[2022-06-20] MEDS: Levothyroxine Sodium 112 MCG TAB PO SCH (05:47)
[2022-06-20] MEDS: ALPRAZolam 0.25 MG TAB PO SCH ×2 (07:59→20:32)
[2022-06-20] MEDS: Divalproex Sodium 250 MG (DR) TAB PO SCH ×2 (08:00→20:33)
[2022-06-20] MEDS: Aspirin Chewable 81 MG TAB PO SCH (08:00)
[2022-06-20] MEDS: Escitalopram Oxalate 10 mg Tablet PO SCH (08:00)
[2022-06-20] MEDS: Folic Acid 1 MG TAB PO SCH (08:00)
[2022-06-20] MEDS: Mometasone/Formoterol 200/5 60 PUFF INH SCH ×2 (08:01→20:33)
[2022-06-20] MEDS: Nystatin Cream 15 GM TUBE TOP SCH ×2 (08:01→20:34)
[2022-06-20] MEDS: Multivit, Therapeutic 1 TAB PO SCH (08:01)
[2022-06-20] MEDS: Thiamine 100 MG TAB PO SCH (08:01)
[2022-06-20] MEDS ORDERED: Divalproex Sodium 250 MG (DR) TAB PO SCH (15:00)
[2022-06-21] MEDS: Ipratropium Bromide 2.5 ml Neb NEB SCH ×4 (05:18→23:59)
[2022-06-21] MEDS: Levothyroxine Sodium 112 MCG TAB PO SCH (05:18)
[2022-06-21] MEDS: Mometasone/Formoterol 200/5 60 PUFF INH SCH ×2 (09:44→21:05)
[2022-06-21] MEDS: Aspirin Chewable 81 MG TAB PO SCH (09:45)
[2022-06-21] MEDS: Nystatin Cream 15 GM TUBE TOP SCH ×2 (09:45→21:08)
[2022-06-21] MEDS: Thiamine 100 MG TAB PO SCH (09:46)
[2022-06-21] MEDS: ALPRAZolam 0.25 MG TAB PO SCH ×2 (09:46→20:51)
[2022-06-21] MEDS: Escitalopram Oxalate 10 mg Tablet PO SCH (09:46)
[2022-06-21] MEDS: Folic Acid 1 MG TAB PO SCH (09:46)
[2022-06-21] MEDS: Divalproex Sodium 250 MG (DR) TAB PO SCH ×2 (09:46→20:59)
[2022-06-21] MEDS: Multivit, Therapeutic 1 TAB PO SCH (09:46)
[2022-06-21] MEDS: Ibuprofen 800 MG TAB PO PRN ×2 (13:49→20:55)
[2022-06-22] MEDS: Ipratropium Bromide 2.5 ml Neb NEB SCH ×4 (05:54→23:22)
[2022-06-22] MEDS: Levothyroxine Sodium 112 MCG TAB PO SCH (05:54)
[2022-06-22] MEDS: Nystatin Cream 15 GM TUBE TOP SCH ×2 (08:28→20:20)
[2022-06-22] MEDS: Multivit, Therapeutic 1 TAB PO SCH (08:29)
[2022-06-22] MEDS: Divalproex Sodium 250 MG (DR) TAB PO SCH ×2 (08:29→20:18)
[2022-06-22] MEDS: Aspirin Chewable 81 MG TAB PO SCH (08:29)
[2022-06-22] MEDS: Thiamine 100 MG TAB PO SCH (08:29)
[2022-06-22] MEDS: ALPRAZolam 0.25 MG TAB PO SCH ×2 (08:29→20:18)
[2022-06-22] MEDS: Folic Acid 1 MG TAB PO SCH (08:29)
[2022-06-22] MEDS: Mometasone/Formoterol 200/5 60 PUFF INH SCH ×2 (08:29→20:25)
[2022-06-22] MEDS: Escitalopram Oxalate 10 mg Tablet PO SCH (08:29)
[2022-06-23] MEDS: Levothyroxine Sodium 112 MCG TAB PO SCH (05:07)
[2022-06-23] MEDS: Ipratropium Bromide 2.5 ml Neb NEB SCH ×3 (05:08→17:59)
[2022-06-23 07:17] VITALS: BP 96/50; TEMP 98.3
[2022-06-23] MEDS: ALPRAZolam 0.25 MG TAB PO SCH (08:11)
[2022-06-23] MEDS: Folic Acid 1 MG TAB PO SCH (08:12)
[2022-06-23] MEDS: Aspirin Chewable 81 MG TAB PO SCH (08:12)
[2022-06-23] MEDS: Divalproex Sodium 250 MG (DR) TAB PO SCH (08:12)
[2022-06-23] MEDS: Escitalopram Oxalate 10 mg Tablet PO SCH (08:12)
[2022-06-23] MEDS: Mometasone/Formoterol 200/5 60 PUFF INH SCH (08:12)
[2022-06-23] MEDS: Thiamine 100 MG TAB PO SCH (08:12)
[2022-06-23] MEDS: Multivit, Therapeutic 1 TAB PO SCH (08:12)
[2022-06-23] MEDS: Nystatin Cream 15 GM TUBE TOP SCH (08:15)
== END 2022-06-23 17:10 | disposition home or self-care (01) | DRG 947 ==
LOC: MADMS 19:50
PROVIDERS: ADMIT Family Medicine; ATTEND Family Medicine
DX: R53.1 Weakness (principal); G93.41 Metabolic encephalopathy; J96.11 Chronic respiratory failure with hypoxia; J96.12 Chronic respiratory failure with hypercapnia; I50.32 Chronic diastolic (congestive) heart failure; Z20.822 Contact with and (suspected) exposure to COVID-19; F10.20 Alcohol dependence, uncomplicated; R53.81 Other malaise; I11.0 Hypertensive heart disease with heart failure; E78.5 Hyperlipidemia, unspecified; D75.89 Other specified diseases of blood and blood-forming organs; J43.9 Emphysema, unspecified; I95.9 Hypotension, unspecified; E03.9 Hypothyroidism, unspecified; F31.9 Bipolar disorder, unspecified; G25.0 Essential tremor; F41.9 Anxiety disorder, unspecified; Z90.710 Acquired absence of both cervix and uterus; Z87.891 Personal history of nicotine dependence; Z88.6 Allergy status to analgesic agent; Z99.81 Dependence on supplemental oxygen; Z91.018 Allergy to other foods; Z79.899 Other long term (current) drug therapy; Z79.82 Long term (current) use of aspirin; Z79.890 Hormone replacement therapy; Z79.52 Long term (current) use of systemic steroids
CPT/HCPCS: 36415; 80048; 80164; 80306; 82565; 85014; 85018; 85025; 85049; 87811; 94640; 94664; J1650; J7512; J7611; J7620; U0003; U0005